=== PATIENT | female | born 1990 | race Two or more races ===

== ENCOUNTER 2018-06-02 18:56 | Emergency (ER) | payer OTHER ==
[~2018-06-02] VITALS: Ht 144.8 cm; Wt 77.1 kg
[2018-06-02 19:16] VITALS: BP 115/75
--- NOTE | 2018-06-02 19:17 | Emergency Room Report ---
History of Present Illness General Chief Complaint: Eye Problems Source: Patient Present Illness HPI 28-year-old female with no significant past medical history here complaining of 1 day of mild pain and yellow discharge from left eye. Eyes are trauma complains of clear rhinorrhea times 1 day as well history of allergies. Sore throat, cough, chest pain, nausea vomiting, abdominal pain. Patient reports that she usually rubs her eyes. Has not taken any medication. Allergies: Coded Allergies: No Known Allergies (Unverified , 06/02/18) Patient History Past Medical History: see triage record Past Surgical History: unable to obtain Pertinent Family History: none Now: No Immunizations: UTD Reviewed Nursing Documentation: PMH: Agreed; PSxH: Agreed Nursing Documentation-PMH Past Medical History: No Stated History Review of Systems All Other Systems: negative except mentioned in HPI Physical Exam Vital Signs Date Time Temp Pulse Resp B/P (MAP) Pulse Ox O2 Delivery O2 Flow Rate FiO2 06/02/18 19:05 98.4 86 16 115/75 97 Room Air Sp02 EP Interpretation: reviewed, normal General Appearance: normal inspection, well appearing Head: normocephalic, atraumatic Eyes: left eye other - injected, yellow dc; bilateral eye PERRL ENT: normal ENT inspection, hearing grossly normal, normal pharynx, no angioedema, TMs + canals normal, uvula midline Neck: normal inspection, full range of motion, supple Respiratory: normal inspection, chest non-tender, lungs clear, no rhonchi, no wheezing Cardiovascular #1: normal inspection, regular rate, rhythm, no edema, no murmur Gastrointestinal: normal inspection, soft Genitourinary: no CVA tenderness Musculoskeletal: normal inspection, back normal Neurologic: normal inspection, alert Psychiatric: normal inspection Skin: normal inspection, normal color, no rash, warm/dry Lymphatic: normal inspection, no adenopathy Medical Decision Making PA Attestation all diagnosis and treatment plans were reviewed and discussed with my supervising physician Dr. Mckeon Diagnostic Impression: Primary Impression: Bacterial conjunctivitis of left eye Additional Impression: Allergic rhinitis ER Course 28-year-old female with no significant past medical history here complaining of 1 day of mild pain and yellow discharge from left eye. Eyes are trauma complains of clear rhinorrhea times 1 day as well history of allergies. Sore throat, cough, chest pain, nausea vomiting, abdominal pain. Patient reports that she usually rubs her eyes. Has not taken any medication. Ddx considered but are not limited to bacterial conjunctivitis, URI, viral conjunctivitis, corneal ulcer, allergic rhinitis, Vital signs: are WNL, pt. is afebrile H&PE are most consistent with bacterial conjunctivitis, allergic rhinitis ORDERS: ofloxacin ophthalmic, claritin D ED INTERVENTIONS: None required at this time. DISCHARGE: At this time pt. is stable for d/c to home. Will provide printed patient care instructions, and any necessary prescriptions. Care plan and follow up instructions have been discussed with the patient prior to discharge. see ophtho if no improvement Last Vital Signs Date Time Temp Pulse Resp B/P (MAP) Pulse Ox O2 Delivery O2 Flow Rate FiO2 06/02/18 19:05 98.4 86 16 115/75 97 Room Air Disposition: HOME, SELF-CARE Condition: Stable Scripts Loratadine/Pseudoephedrine (CLARITIN-D 12 HOUR TABLET) 1 Each Tab.er.12h 1 TAB ORAL EVERY 12 HOURS, #20 TAB Prov: Dean Perez 06/02/18 Ofloxacin (OFLOXACIN) 5 Ml Drops 2 DROP OP EVERY 6 HOURS for 5 Days, #5 ML Prov: Dean Perez 06/02/18 Patient Instructions: Allergic Rhinitis, Bacterial Conjunctivitis, Klra-fx-[id number] Dean Perez Jun 02, 2018 19:17
[2018-06-02] MEDS ORDERED: CLARITIN-D 121 EAC1 ORAL (19:18)
[2018-06-02] MEDS ORDERED: OFLOXACIN5 ML OP (19:18)
--- NOTE | 2018-06-02 19:18 | NUR ---
ED Nurse Note: LEFT EYE REDNESS AND SWELLING AND NASAL CONGESTION X 1 DAY, NO INJURY. NO VISUAL DEFICITS.
[2018-06-02 19:21] VITALS: BP 115/75
--- NOTE | 2018-06-02 19:22 | NUR ---
ER DISCHARGE NOTE: Patient is cleared to be discharged per ERMD, pt is aox4, on room air, with stable vital signs. pt was given dc and prescription instructions, pt was able to verbalize understanding, pt id band removed. pt is able to ambulate with steady gait. pt took all belongings.
== END 2018-06-02 19:21 | disposition home or self-care (01) ==
LOC: EMR 19:15
DX: H10.89 Other conjunctivitis (principal); B96.89 Other specified bacterial agents as the cause of diseases classified elsewhere; J30.9 Allergic rhinitis, unspecified
CPT/HCPCS: 99282